=== PATIENT | female | born 1985 | race Two or more races ===

== ENCOUNTER 2016-11-14 18:29 | Emergency (ER) | payer MEDICAID, OTHER ==
[~2016-11-14] VITALS: Ht 170.2 cm; Wt 81.6 kg
[2016-11-14 19:05] LABS: Hematocrit 49.1 % (36.0-46.0); Mean Corpuscular Hemoglobin 31.6 pg (28.0-32.0); Mean Corpuscular Hgb Conc. 34.7 g/dL (32.0-36.0); Mean Corpuscular Volume 91.1 fL (80.0-100.0); Mean Platelet Volume 8.3 fL (7.4-10.4); Platelet Count (auto) 284 10^3/uL (140-450); Red Cell Distribution Width 12.4 % (11.6-16.0); SUSPECT VIEW TRANSMISSION; White Blood Cell 22.5 10^3/uL (4.4-10.8)
[2016-11-14 19:08] LABS: Metamyelocytes % 0; Myelocytes % 0; Promyelocytes % 0; Reactive Lymphocytes 0
[2016-11-14] MEDS ORDERED: SUCCINYLCHOLINE CHLORIDE 20 MG/ML 10ML VIAL IV ONE (19:11)
[2016-11-14] MEDS ORDERED: ETOMIDATE (2MG/ML) 20ML VIAL IV ONE (19:11)
[2016-11-14] MEDS ORDERED: DEXAMETHASONE SOD PHOS 10MG/1ML VIAL INJ ONE (19:11)
[2016-11-14] MEDS ORDERED: MANNITOL FTV 25% 12.5 GM/50 ML 50 ML IV ONE (19:12)
[2016-11-14] MEDS ORDERED: PHENYTOIN SODIUM 50 MG/ML 5ML INJ VIAL IV ONE (19:34)
[2016-11-14] MEDS ORDERED: MIDAZOLAM DRIP 100 mg/100mL NS 100 ML IV ONE (19:40)
[2016-11-14 19:41] LABS: Albumin 4.1 g/dL (3.4-5.0); Anion Gap 12 (5-15); Aspartate Aminotransferase 21 U/L (15-37); BUN/Creatinine Ratio 10.2; Blood Urea Nitrogen 9 mg/dL (7-18); Carbon Dioxide 21 mmol/L (21-32); Chloride 105 mmol/L (98-107); GFR African American 96 mL/min; GFR Non-African American 80 mL/min; Glucose 145 mg/dL (74-106); Sodium 138 mmol/L (136-145)
[2016-11-14 19:44] LABS: Alkaline Phosphatase 97 U/L (45-117); Bilirubin, Total 1.2 mg/dL (0.2-1.0); Total Protein 8.5 g/dL (6.4-8.2)
[2016-11-14] MEDS ORDERED: LORazepam 2MG/ML-1ML VIAL ONE (19:56)
[2016-11-14] MEDS ORDERED: PROPOFOL 100 ML IV ONE (20:01)
[2016-11-14 20:15] VITALS: BP 146/81
[2016-11-14 20:27] LABS: Platelet Estimate Adequate; RBC Morphology Normal
== END 2016-11-14 20:45 | disposition short-term general hospital (02) ==
LOC: EDUNIT# 18:29 → EDBD 18:29 → ER 18:29
DX: R41.82 Altered mental status, unspecified (principal); I62.9 Nontraumatic intracranial hemorrhage, unspecified; R51 Headache
CPT/HCPCS: 31500; 36415; 51702; 70450; 71010; 80053; 80320; 85007; 85027; 93005; 94002; 96375; 99285; J0330; J1100; J1165; J2060; J2150; J2704